=== PATIENT | male | born 1950 | race Caucasian/White ===

== ENCOUNTER → 2020-10-25 | Outpatient (CLI) | payer OTHER ==
[~2020-10-25] MED LIST: REGADENOSON 0.4 MG/5 ML PF SYG IVP SCH
== END | disposition home or self-care (01) ==
LOC: SHCH 08:32
PROVIDERS: ATTEND Internal Medicine
DX: R07.9 Chest pain, unspecified (principal)
CPT/HCPCS: 78452; 93017; 96374; A9500 ×2; J2785

== ENCOUNTER 2021-01-23 13:41 | Emergency (ER) | payer OTHER ==
[2021-01-23] MEDS ORDERED: ACETAMINOPHEN-CODEINE 300/30MG TAB ONE (14:17)
[2021-01-23] MEDS ORDERED: APAP/CODEINE 120/12MG 5ML ONE ×2 (14:18→14:19)
[2021-01-23 14:27] LABS: BASOPHILS % (AUTO) 0.4 % (0.0-5.0); EOSINOPHILS % (AUTO) 2.8 % (0.0-8.0); HEMATOCRIT 37.1 % (42-54); LYMPHOCYTES % (AUTO) 5.6 % (21.0-51.0); MEAN CORPUSCULAR HEMOGLOBIN 29.7 pg (27.0-33.0); MEAN CORPUSCULAR HGB CONC 33.7 g/dL (32.0-36.0); MEAN CORPUSCULAR VOLUME 88.1 fL (79-99); MONOCYTES % (AUTO) 10.8 % (3.0-13.0); NEUTROPHILS % (AUTO) 78.8 % (40.0-77.0); PLATELET COUNT (AUTO) 436 K/uL (130-400); RED BLOOD CELL COUNT(AUTO) 4.21 MIL/uL (4.50-6.20); RED CELL DISTRIBUTION WIDTH 13.4 % (11.0-15.5); WHITE BLOOD COUNT (AUTO) 16.9 K/uL (4.8-10.8)
[2021-01-23 14:38] LABS: APPEARANCE,URINE Clear (CLEAR); BILIRUBIN,URINE Small (NEGATIVE); COLOR,URINE Dark Yellow (YELLOW); GLUCOSE, URINE (UA) Negative (NEGATIVE); KETONES,URINE Trace mg/dL (NEGATIVE); LEUKOCYTE ESTERASE ,URINE Negative (NEGATIVE); NITRATE,URINE Negative (NEGATIVE); OCCULT BLOOD,URINE Negative (NEGATIVE); PROTEIN,URINE Trace mg/dL (NEGATIVE)
[2021-01-23 14:56] LABS: RAPID GROUP A STREP NEGATIVE (NEGATIVE)
[2021-01-23 15:10] LABS: B-TYPE NATRIURETIC PEPTIDE 126 pg/mL (0-100)
[2021-01-23 15:12] LABS: CREATININE 1.4 mg/dL (0.5-1.5)
[2021-01-23 15:20] LABS: BACTERIA,URINE Few /HPF (None Seen); RBC,URINE 0-1 /HPF (0-1); SQUAMOUS EPITHELIAL CELL,UR Rare /HPF (0-2); WBC,URINE 0-1 /HPF (0-1)
[2021-01-23 15:21] LABS: ALBUMIN 1.9 g/dL (3.5-5.0); BILIRUBIN,TOTAL 0.6 mg/dL (0.2-1.0); TOTAL PROTEIN, SERUM 6.4 g/dL (6.0-8.3)
[2021-01-23 15:21] LABS: MUCUS,URINE Moderate LPF (None Seen)
[2021-01-23] MEDS ORDERED: CEFTRIAXONE SODIUM 1 GM ONE (16:26)
== END 2021-01-23 16:36 | disposition home or self-care (01) ==
LOC: EDH 13:41
DX: D72.829 Elevated white blood cell count, unspecified (principal); N41.9 Inflammatory disease of prostate, unspecified; J30.9 Allergic rhinitis, unspecified; M79.604 Pain in right leg; M79.605 Pain in left leg; Z20.822 Contact with and (suspected) exposure to COVID-19; I10 Essential (primary) hypertension; Z90.49 Acquired absence of other specified parts of digestive tract; Z87.891 Personal history of nicotine dependence; Z88.2 Allergy status to sulfonamides
CPT/HCPCS: 36415; 71045; 80053; 81001; 83605; 83690; 83880; 84484; 85025; 87040; 87426; 87804 ×2; 87880; 93970; 96374; 99285; J0696; U0003

== ENCOUNTER → 2022-06-27 | Outpatient (CLI) | payer OTHER | END | disposition home or self-care (01) | LOC: OIH 13:01 | PROVIDERS: ATTEND Internal Medicine | DX: I36.1 Nonrheumatic tricuspid (valve) insufficiency (principal); I11.9 Hypertensive heart disease without heart failure; E78.5 Hyperlipidemia, unspecified | CPT/HCPCS: 93306 ==

== ENCOUNTER → 2022-07-10 | Outpatient (CLI) | payer OTHER | END | disposition home or self-care (01) | LOC: SHCH 08:32 | PROVIDERS: ATTEND Internal Medicine | DX: R07.9 Chest pain, unspecified (principal); R06.02 Shortness of breath | CPT/HCPCS: 78452; 96374; 93017; J2785; A9500 ×2 ==

== ENCOUNTER → 2023-01-30 | Outpatient (CLI) | payer MEDICARE ==
[2023-01-30 12:11] LABS: BASOPHILS % (AUTO) 0.5 % (0.0-5.0); EOSINOPHILS % (AUTO) 2.5 % (0.0-8.0); HEMATOCRIT 44.4 % (42-54); LYMPHOCYTES % (AUTO) 24.5 % (21.0-51.0); MEAN CORPUSCULAR HEMOGLOBIN 29.6 pg (27.0-33.0); MEAN CORPUSCULAR HGB CONC 32.4 g/dL (32.0-36.0); MEAN CORPUSCULAR VOLUME 91.4 fL (79-99); MONOCYTES % (AUTO) 11.1 % (3.0-13.0); NEUTROPHILS % (AUTO) 60.9 % (40.0-77.0); PLATELET COUNT (AUTO) 180 K/uL (130-400); RED BLOOD CELL COUNT(AUTO) 4.86 MIL/uL (4.50-6.20); RED CELL DISTRIBUTION WIDTH 13.7 % (11.0-15.5)
[2023-01-30 12:37] LABS: ALBUMIN 3.9 g/dL (3.5-5.0); CREATININE 1.3 mg/dL (0.5-1.5); POTASSIUM 4.8 mmol/L (3.5-5.1); T4 (THYROXINE) 9.1 ug/dL (4.7-13.3); THYROID STIMULATING HORMONE 3.48 uIU/mL (0.36-3.74); TOTAL PROTEIN, SERUM 7.1 g/dL (6.0-8.3)
== END | disposition home or self-care (01) ==
LOC: LAB 01-29 13:26
PROVIDERS: ATTEND Internal Medicine Cardiovascular Disease
DX: E78.5 Hyperlipidemia, unspecified (principal); E07.9 Disorder of thyroid, unspecified; Z79.899 Other long term (current) drug therapy
CPT/HCPCS: 36415; 80053; 80061; 83036; 84402; 84403; 84436; 84443; 84479; 85025

== ENCOUNTER → 2024-05-26 | Outpatient (CLI) | payer OTHER ==
[~2024-05-26] MED LIST changes: +IOHEXOL 350 MG/ML 100ML INFUS..BTL IV ONE; +IOHEXOL-350 75 ML VIAL IV ONE; -REGADENOSON 0.4 MG/5 ML PF SYG IVP SCH
== END | disposition home or self-care (01) ==
LOC: RAH 10:57
PROVIDERS: ATTEND Internal Medicine Cardiovascular Disease
DX: I25.10 Atherosclerotic heart disease of native coronary artery without angina pectoris (principal); I10 Essential (primary) hypertension; R07.9 Chest pain, unspecified
CPT/HCPCS: 93306; 75574; Q9967 ×2

== ENCOUNTER → 2024-11-11 | Outpatient (CLI) | payer OTHER ==
[~2024-11-11] MED LIST changes: +ALBUTEROL 0.083% 2.5 MG/3 ML INH IH ONE; -IOHEXOL 350 MG/ML 100ML INFUS..BTL IV ONE; -IOHEXOL-350 75 ML VIAL IV ONE
== END | disposition home or self-care (01) ==
LOC: RESP 15:03
PROVIDERS: ATTEND Internal Medicine Cardiovascular Disease
DX: R06.02 Shortness of breath (principal); R06.00 Dyspnea, unspecified
CPT/HCPCS: 94060

== ENCOUNTER → 2024-11-17 | Outpatient (CLI) | payer OTHER ==
--- NOTE | 2024-11-18 07:50 | HMCSR ---
APPROVED REPORT Laterality: Bilateral Indications Claudication: , PAD VELOCITY AND DOPPLER WAVEFORM ANALYSIS TAX SENIOR ASSOCIATE (R) 97.2cm/sec, Biphasic, TAX SENIOR ASSOCIATE (L) 101.9cm/sec, Biphasic, Prof Fem Art. (R) 56.7cm/sec, Biphasic, Prof Fem Art. (L) 74.1cm/sec, Biphasic, Fem Art Prox. (R) 84.5cm/sec, Biphasic, Fem Art Prox. (L) 103.0cm/sec, Biphasic, Fem Art Mid. (R) 88.0cm/sec, Biphasic, Fem Art Mid. (L) 77.3cm/sec, Biphasic, Fem Art Dist (R) 67.1cm/sec, Biphasic, Fem Art Dist. (L) 60.7cm/sec, Biphasic, Pop Art(AK) (R) 64.2cm/sec, Biphasic, Pop Art (AK) (L) 64.2cm/sec, Biphasic, Pop Art (Fossa)(R) 63.5cm/sec, Biphasic, Pop Art (Fossa) (L) 76.6cm/sec, Biphasic, Pop Art(BK) (R) 72.5cm/sec, Biphasic, Pop Art (BK) (L) 58.7cm/sec, Biphasic, FIN[employer]CIAL [employer]OUNDATIONS ASSOCIATE Prox. (R) 48.3cm/sec, Biphasic, FINANCIAL FOUNDATIONS ASSOCIATE Prox. (L) 51.1cm/sec, Biphasic, FINANCIAL FOUNDATIONS ASSOCIATE Mid. (R) 60.7cm/sec, Biphasic, FINANCIAL FOUNDATIONS ASSOCIATE Mid. (L) 79.0cm/sec, Biphasic, FINANCIAL FOUNDATIONS ASSOCIATE Dist. (R) 40.7cm/sec, Biphasic, FINANCIAL FOUNDATIONS ASSOCIATE Dist. (L) 73.2cm/sec, Biphasic, Per Art Prox. (R) 35.9cm/sec, Biphasic, Per Art Prox. (L) 34.1cm/sec, Biphasic, Per Art Mid. (R) 51.1cm/sec, Biphasic, Per Art Mid. (L) 44.9cm/sec, Biphasic, Per Art Dist. (R) 62.8cm/sec, Biphasic, Per Art Dist. (L) 35.9cm/sec, Biphasic, LANDY Prox. (R) 64.4cm/sec, Biphasic, LANDY Prox. (L) 48.9cm/sec, Biphasic, LANDY Mid. (R) 53.8cm/sec, Biphasic LANDY Mid. (L) 50.6cm/sec, Biphasic, LANDY Dist. (R) 82.4cm/sec, Biphasic, LANDY Dist. (L) 79.9cm/sec, Biphasic, Technologist Impression No evidence of significant arterial disease the lower extremities. Multiphasic waveforms in the bilateral lower extremities. Conclusion No evidence of significant arterial disease the lower extremities. Multiphasic waveforms in the bilateral lower extremities. Conclusion No evidence of significant arterial disease the lower extremities. Multiphasic waveforms in the bilateral lower extremities.
== END | disposition home or self-care (01) ==
LOC: SHCH 08:48
PROVIDERS: ATTEND Internal Medicine Cardiovascular Disease
DX: I73.9 Peripheral vascular disease, unspecified (principal)
CPT/HCPCS: 93925

== ENCOUNTER → 2024-11-20 | Outpatient (CLI) | payer OTHER ==
[2024-11-20] MEDS: REGADENOSON 0.4 MG/5 ML PF SYG IVP ONE (11:02)
--- NOTE | 2024-11-23 07:33 | HMCSR ---
APPROVED REPORT Height: 5 ft 8in Weight: 201 lbs TEST INDICATIONS Dyspnea The imaging protocol used to acquire images was Rest Tc-99m/stress Tc-99m 1 day Consent: The procedure was explained and understood by the patient. Informerd consent was witnessed b y Tc-99m Sestamibi First, low dose rest was performed then high dose stress. RESTING DATA: The resting ekg shows: NSR Rest SPECT myocardial perfusion imaging was performed in supine position 60 minutes following the int ravenous injection of 10.0 mCi of Tc-99 Sestamibi. Time of rest injection: 0925 Date: 11/20/2024 Time of rest imagin Date: 11/20/2024 PHARMACOLOGIC STRESS: Pharmacologic stress test was performed by injecting regadenoson 0.4 mg IV push followed by the intra venous injection of 30.0 mCi of Tc-99 Sestamibi. Time of stress injection: 1053 Date: 11/20/2024 Time of stress imagin Date: 11/20/2024 Heart Rate at time of stress injection: 46 bpm. Gated Stress SPECT was performed 84 minutes after stress injection. The images were gated to evaluate regional wall motion and calculate left ventricular ejection fracti on. STRESS DETAILS Reason for Termination: Infusion complete Stress Symptoms: Dyspnea;Coughing Max HR Achieved: 78 bpm % of APMHR Achieved: 54 Max Blood Pressure: 145/70 mmHg Stress ECG: NSR LEFT VENTRICLE Size: The left ventricular size is normal. Systolic Function:The left ventricular systolic function is normal. Wall Motion: No regional wall motion abnormalities noted. The left ventricular ejection fraction was calculated to be 59%.TID = . LV PERFUSION Fixed infero-lateral thinning defect. No reversible defects identified. Conclusion The left ventricular size is normal. The left ventricular systolic function is normal. No regional wall motion abnormalities noted. Fixed infero-lateral thinning defect. No reversible defects identified. The left ventricular ejection fraction was calculated to be 59%.
== END | disposition home or self-care (01) ==
LOC: RAH 09:05
PROVIDERS: ATTEND Internal Medicine Cardiovascular Disease
DX: I25.5 Ischemic cardiomyopathy (principal); R06.00 Dyspnea, unspecified; R05.9 Cough, unspecified
CPT/HCPCS: 78452; 93017; J2785; A9500 ×2